=== PATIENT | female | born 2000 | race Hispanic/Latino ===

== ENCOUNTER 2018-11-02 15:51 | Emergency (ER) | payer OTHER, SELFPAY ==
[2018-11-02] MEDS ORDERED: Lidocaine 1% (PF) 30 ML VIAL ONE (16:04)
[2018-11-02] MEDS ORDERED: Bupivacaine 0.5% 10 ML VIAL ONE (16:04)
--- NOTE | 2018-11-02 17:53 | RAD ---
LEFT FINGER THREE VIEWS: 11/02/18 HISTORY: Left finger pain, slammed left index finger in car door with avulsion of the nail. FINDINGS/IMPRESSION: No acute fracture or dislocation is seen. No radiopaque foreign body is identified. Soft tissue swell ing is present most prominent at the level of the PIP joint. POS: [facility]
== END 2018-11-02 17:37 | disposition home or self-care (01) ==
LOC: ERS 15:51
DX: S61.301A Unspecified open wound of left index finger with damage to nail, initial encounter (principal); F41.9 Anxiety disorder, unspecified; F32.9 Major depressive disorder, single episode, unspecified; W22.03XA Walked into furniture, initial encounter
CPT/HCPCS: 11730; J2001; J3490

== ENCOUNTER 2024-05-13 15:23 | Emergency (ER) | payer MEDICAID, SELFPAY ==
[2024-05-13 15:57] LABS: Bacteria/HPF None Seen HPF (None Seen); Bilirubin Negative (Negative); Blood, Urine Trace (Negative); CAUTI Indications for Culture Dysuria,urgency,freq; Clarity Clear (Clear); Glucose, Urine (Dipstick) Normal (Negative); Ketone, Urine Trace mg/dL (Negative); Leukocyte 75 Leu/uL (Negative); Nitrite Negative (Negative); Protein, Urine (Dipstick) 20 mg/dL (Neg-Trace); RBC/HPF 0-3 HPF (0-3); Specific Gravity, Urine 1.025 (1.002-1.036); Urobilinogen Normal mg/dL (Less than 2); pH, Urine 6.5 (5.0-9.0)
[2024-05-13 15:58] LABS: Urine Culture Reflex No No
[2024-05-13 16:52] LABS: #Basophils Less than 0.03 10x3/uL (0.0-0.2); %Basophils 0.1 % (0.0-1.0); %Eosinophils 0.6 % (0.0-10.0); %Lymphocytes 21.2 % (21.0-51.0); %Monocytes 4.4 % (0.0-10.0); %Neutrophils 73.4 % (42.0-75.0); Hematocrit 35.3 % (36.0-47.0); Hemoglobin 12.6 g/dL (12.0-16.0); Mean Corpuscular HGB CONC 35.7 g/dL (32.0-36.0); Mean Corpuscular Hemoglobin 32.7 pg (27.0-31.0); Mean Corpuscular Volume 91.7 fL (78.0-98.0); Mean Platelet Volume 10.5 fL (7.4-10.4); Platelet Count 222 10x3/uL (130-400); RBC Distribution Width 11.8 % (11.5-14.5); Red Blood Cell (RBC) Count 3.85 mill/uL (4.20-5.40)
[2024-05-13 17:09] LABS: ALT (SGPT) 38 U/L (8-55); AST (SGOT) 24 U/L (5-34); Albumin 3.7 g/dL (3.5-5.0); Alkaline Phosphatase 64 U/L (40-110); Anion Gap 13 mmol/L (10-20); BUN (Urea Nitrogen) 7 mg/dL (7.0-18.7); Bilirubin, Total 0.6 mg/dL (0.2-1.2); Calc. Creatinine Clearance 0 mL/min (70-130); Calcium 9.1 mg/dL (7.8-10.44); Carbon Dioxide 21 mmol/L (22-29); Chloride 106 mmol/L (98-107); Estimated GFR 114; Globulin 3.5 g/dL (2.4-3.5); Glucose 87 mg/dL (70-105); Magnesium 2.1 mg/dL (1.6-2.6); Potassium 3.9 mmol/L (3.5-5.1); Protein, Total 7.2 g/dL (6.0-8.3); Sodium 136 mmol/L (136-145)
[2024-05-13] MEDS ORDERED: Metoclopramide HCl 10 MG (2 mL) VIAL ONE (17:45)
== END 2024-05-13 18:50 | disposition home or self-care (01) ==
LOC: ERS 15:23
DX: O22.41 Hemorrhoids in pregnancy, first trimester (principal); O99.331 Smoking (tobacco) complicating pregnancy, first trimester; F17.290 Nicotine dependence, other tobacco product, uncomplicated; Z3A.13 13 weeks gestation of pregnancy
CPT/HCPCS: 36415; 76815; 80053; 81001; 83735; 85025; J2765

== ENCOUNTER 2024-07-27 09:53 | Outpatient (CLI) | payer OTHER | END 2024-07-27 09:54 | disposition home or self-care (01) | LOC: BICULT 09:53 | DX: Z33.1 Pregnant state, incidental (principal); Z3A.23 23 weeks gestation of pregnancy | CPT/HCPCS: 76805 ==